=== PATIENT | female | born 1975 | race Asian ===

== ENCOUNTER 2021-04-29 16:27 | Emergency (ER) | payer OTHER ==
[~2021-04-29] VITALS: Ht 165.1 cm; Wt 54.9 kg
== END 2021-04-29 17:49 | disposition home or self-care (01) ==
LOC: ER 16:27
DX: T74.11XA Adult physical abuse, confirmed, initial encounter (principal); S05.11XA Contusion of eyeball and orbital tissues, right eye, initial encounter; I10 Essential (primary) hypertension; Y04.8XXA Assault by other bodily force, initial encounter
CPT/HCPCS: 99283